=== PATIENT | female | born 1940 | race Caucasian/White ===

== ENCOUNTER 2019-08-12 08:00 | Inpatient (IN) | payer OTHER ==
[~2019-08-12] VITALS: Ht 152.4 cm; Wt 63.5 kg
[2019-08-12] MEDS ORDERED: METFORMIN HCL500 M3 PO (10:03)
[2019-08-12] MEDS ORDERED: PEPCID AC20 MG PO (10:04)
[2019-08-12] MEDS ORDERED: DILT-XR120 MG PO (10:04)
[2019-08-12] MEDS ORDERED: LOSARTAN-HCTZ1 EAC2 PO (10:04)
[2019-08-12] MEDS ORDERED: PRILOSEC OTC20 MG PO (10:04)
[2019-08-12] MEDS ORDERED: LEVOTHYROXINE25 MCG PO (10:05)
[2019-08-12] MEDS ORDERED: SINGULAIR10 MG PO (10:05)
[2019-08-12] MEDS ORDERED: PLAVIX75 MG PO (10:05)
[2019-08-12] MEDS ORDERED: LIPITOR20 MG PO (10:05)
[2019-08-12] MEDS ORDERED: RESTORIL15 MG PO (10:06)
[2019-08-20] MEDS ORDERED: BACTRIM DS TAB1 EACH PO (08:04)
[2019-08-20] MEDS ORDERED: XARELTO10 MG PO (08:04)
[2019-08-20] MEDS ORDERED: INTEGRA PLUS C1 EACH PO (08:04)
[2019-08-20] MEDS ORDERED: CODE1TAB37 PO (08:04)
== END 2019-08-20 12:42 | DRG 470 ==
LOC: ADM 08:00 → EDSTATUS 08:00 → SURH 08-18 07:00 → O/R 08-18 08:49 → SURH 08-18 08:49
PROVIDERS: ADMIT Orthopaedic Surgery Sports Medicine
PROC: 0SRD0J9 Replacement of Left Knee Joint with Synthetic Substitute, Cemented, Open Approach (ICD-10-PCS; principal; 2019-08-18 07:00)
DX: M17.12 Unilateral primary osteoarthritis, left knee (principal); I10 Essential (primary) hypertension; E03.8 Other specified hypothyroidism